=== PATIENT | male | born 1975 | race Two or more races ===

== ENCOUNTER 2023-07-18 15:45 | Inpatient (IN) | payer OTHER ==
[~2023-07-18] VITALS: Ht 165.1 cm; Wt 69.4 kg
[2023-07-18] MEDS: ONDANSETRON 4 MG/2 ML VIAL IV ONE (16:00)
[2023-07-18] MEDS: METOPROLOL TARTRATE 50 MG TABLET PO ONE (16:00)
[2023-07-18] MEDS: HYDROMORPHONE 1 MG/1 ML DISP.SYRIN IV ONE ×2 (16:00→18:28)
[2023-07-18] MEDS: NITROGLYCERIN OINT 1 GM PACKET TP ONE (16:00)
[2023-07-18] MEDS: METOPROLOL TARTRATE 5 MG/5 ML VIAL IVP ONE (16:00)
[2023-07-18 16:11] LABS: CALCIUM 7.5 mg/dL (8.5-10.1); CARBON DIOXIDE 23 mmol/L (21-32); CHLORIDE 94 mmol/L (98-107); CREATININE 7.2 mg/dL (0.6-1.3); GLUCOSE 61 mg/dL (74-106); SODIUM SERUM 135 mmol/L (136-145); UREA NITROGEN, BLOOD 16 mg/dL (7-18)
[2023-07-18 16:17] LABS: BASOPHILS # (AUTO) 0.1 K/UL (0.0-0.2); DIFFERENTIAL COMMENT 0; EOSINOPHILS # (AUTO) 0.1 K/uL (0.0-0.7); EOSINOPHILS % (AUTO) 3.2 % (0.0-7.0); HEMATOCRIT 28.8 % (36.7-47.1); HEMOGLOBIN 9.9 g/dL (12.5-16.3); LYMPHOCYTES # (AUTO) 0.5 K/uL (0.8-4.8); LYMPHOCYTES % (AUTO) 13.8 % (20.5-51.5); MEAN CORPUSCULAR HEMOGLOBIN 32.9 uug (23.8-33.4); MEAN CORPUSCULAR HGB CONC 34 g/dL (32.5-36.3); MEAN CORPUSCULAR VOLUME 95.7 fL (73.0-96.2); MONOCYTES # (AUTO) 0.3 K/uL (0.1-1.30); MONOCYTES % (AUTO) 8.6 % (0.0-11.0); NEUTROPHILS # (AUTO) 2.7 K/uL (1.8-8.9); NEUTROPHILS % (AUTO) 71.4 % (38.5-71.5); PLATELET COUNT (AUTO) 180 K/uL (152-348); WHITE BLOOD COUNT (AUTO) 3.8 K/uL (3.6-10.2)
[2023-07-18 16:24] LABS: NT-PRO BNP 9401 pg/mL (0-125)
[2023-07-18] MEDS ORDERED: NITROGLYCERIN OINT 1 GM PACKET TP ONE (16:35)
[2023-07-18] MEDS ORDERED: METOPROLOL TARTRATE 5 MG/5 ML VIAL IVP ONE (16:35)
[2023-07-18] MEDS ORDERED: METOPROLOL TARTRATE 50 MG TABLET ONE (16:35)
[2023-07-18] MEDS ORDERED: ONDANSETRON 4 MG/2 ML VIAL ONE (16:35)
[2023-07-18] MEDS ORDERED: HYDROMORPHONE 1 MG/1 ML DISP.SYRIN ONE ×2 (16:35→18:28)
[2023-07-18] MEDS ORDERED: DULO20CA PO (16:43)
[2023-07-18] MEDS ORDERED: GABA600T12 PO (16:43)
[2023-07-18] MEDS ORDERED: MINO2.5T GT (16:43)
[2023-07-18] MEDS ORDERED: CINA60TA PO (16:43)
[2023-07-18] MEDS ORDERED: CETI-90 PO (16:43)
[2023-07-18] MEDS ORDERED: HYDR-4077 PO (16:43)
[2023-07-18] MEDS ORDERED: FOLI1TAB94 PO (16:43)
[2023-07-18] MEDS ORDERED: CLON-418 PO (16:43)
[2023-07-18] MEDS ORDERED: OMEP40CA21 PO (16:43)
[2023-07-18] MEDS ORDERED: LABE100T5 PO (16:43)
[2023-07-18 21:41] VITALS: BP 111/53; TEMP 98.3; O2SAT 98
[2023-07-18 21:42] VITALS: BP 111/53; TEMP 98.3; O2SAT 98
[2023-07-18] MEDS ORDERED: NITROGLYCERIN 0.4 MG/TAB BOTTLE SL PRN (22:30)
[2023-07-18] MEDS ORDERED: MORPHINE SULFATE 2 MG/1 ML DISP.SYRIN IV PRN (22:30)
[2023-07-18] MEDS ORDERED: MAGNESIUM HYDROXIDE 30 ML LIQUID UDC PO PRN (22:30)
[2023-07-18] MEDS ORDERED: ONDANSETRON 4 MG/2 ML VIAL IV PRN (22:30)
[2023-07-18] MEDS ORDERED: REMEDY ESSENTIAL ZINC PASTE 113 GM TP PRN (22:30)
[2023-07-18] MEDS: HYDROMORPHONE 1 MG/1 ML DISP.SYRIN IV PRN (23:12)
[2023-07-19 00:07] VITALS: BP 102/55; TEMP 98.4; O2SAT 97
[2023-07-19 05:32] VITALS: BP 127/69; TEMP 98.2; O2SAT 96
[2023-07-19] MEDS: hydrALAZINE HCL 50 MG TABLET PO SCH (06:26)
[2023-07-19] MEDS: PANTOPRAZOLE SODIUM 40 MG TABLET.DR PO SCH (06:26)
[2023-07-19 07:00] LABS: BASOPHILS % (AUTO) 1.6 % (0.0-2.0); EOSINOPHILS # (AUTO) 0.2 K/uL (0.0-0.7); EOSINOPHILS % (AUTO) 7.2 % (0.0-7.0); HEMATOCRIT 27.9 % (36.7-47.1); HEMOGLOBIN 9.6 g/dL (12.5-16.3); LYMPHOCYTES # (AUTO) 0.4 K/uL (0.8-4.8); LYMPHOCYTES % (AUTO) 18.7 % (20.5-51.5); MEAN CORPUSCULAR HEMOGLOBIN 33.2 uug (23.8-33.4); MEAN CORPUSCULAR HGB CONC 34 g/dL (32.5-36.3); MEAN CORPUSCULAR VOLUME 96.7 fL (73.0-96.2); MONOCYTES # (AUTO) 0.3 K/uL (0.1-1.30); MONOCYTES % (AUTO) 12.9 % (0.0-11.0); NEUTROPHILS # (AUTO) 1.4 K/uL (1.8-8.9); NEUTROPHILS % (AUTO) 59.6 % (38.5-71.5); PLATELET COUNT (AUTO) 137 K/uL (152-348); RED BLOOD CELL COUNT(AUTO) 2.89 MIL/uL (4.06-5.63); RED CELL DISTRIBUTION WIDTH 16.2 % (12.1-16.2); WHITE BLOOD COUNT (AUTO) 2.3 K/uL (3.6-10.2)
[2023-07-19 07:08] LABS: CALCIUM 6.8 mg/dL (8.5-10.1); MAGNESIUM 2.2 mg/dL (1.8-2.4); PHOSPHOROUS 5.1 mg/dL (2.5-4.9); POTASSIUM 3.9 mmol/L (3.5-5.1)
[2023-07-19 07:14] LABS: DIFFERENTIAL COMMENT 1
[2023-07-19 07:19] LABS: CREATININE 8.9 mg/dL (0.6-1.3)
[2023-07-19 08:06] VITALS: BP 109/61; TEMP 98.6
[2023-07-19] MEDS: DULOXETINE 20 MG CAPSULE.DR PO SCH (08:56)
[2023-07-19] MEDS: FOLIC ACID 1 MG TABLET PO SCH (08:56)
[2023-07-19] MEDS: MINOXIDIL 2.5 MG TABLET GT SCH (08:56)
[2023-07-19] MEDS: ASPIRIN 325 MG TABLET PO SCH (08:56)
[2023-07-19] MEDS: CINACALCET HCL 30 MG TABLET PO SCH (08:56)
[2023-07-19] MEDS: LABETALOL HCL 100 MG TABLET PO SCH (08:57)
[2023-07-19] MEDS ORDERED: CETIRIZINE HCL 10 MG TABLET PO SCH (09:00)
[2023-07-19] MEDS ORDERED: CINACALCET HCL 60 MG PO SCH (09:00)
[2023-07-19] MEDS ORDERED: Medication Not On Formulary EA (Omeprazole 40 MG) PO SCH (09:00)
[2023-07-19] MEDS ORDERED: CLONIDINE HCL 0.1 MG PO SCH (09:00)
[2023-07-19 12:02] VITALS: BP 107/66; TEMP 97.8; O2SAT 99
[2023-07-19] MEDS ORDERED: MAGNESIUM HYDROXIDE 30 ML LIQUID UDC PO PRN (14:15)
[2023-07-19 16:03] VITALS: BP 100/63; TEMP 98.6; O2SAT 95
[2023-07-19] MEDS: MAGNESIUM HYDROXIDE 30 ML LIQUID UDC PO PRN (16:53)
[2023-07-19 20:00] VITALS: BP 119/67; TEMP 97.2; O2SAT 96
[2023-07-19] MEDS ORDERED: POLYVINYL ALCOHOL OPHT DROPS 15 ML BOTTLE EACHEYE SCH (21:00)
[2023-07-19] MEDS ORDERED: prednisoLONE ACET 1% OPHT DROP 5 ML BOTTLE RIGHTEYE SCH (21:00)
[2023-07-20 00:21] VITALS: BP 112/64; TEMP 97.6; O2SAT 96
[2023-07-20 04:00] VITALS: BP 109/60; TEMP 98; O2SAT 98
[2023-07-20 08:00] VITALS: BP 99/58; TEMP 98.6; O2SAT 95
[2023-07-20] MEDS ORDERED: CLONIDINE HCL 0.1 MG TABLET PO PRN (11:00)
[2023-07-20] MEDS: GABAPENTIN 300 MG CAPSULE PO SCH (11:29)
[2023-07-20 11:45] VITALS: BP 129/76; TEMP 98.4; O2SAT 97
[2023-07-20] MEDS ORDERED: HYDR-894 PO (13:26)
[2023-07-20] MEDS ORDERED: hydrALAZINE HCL 50 MG TABLET PO SCH (14:00)
[2023-07-20] MEDS: hydrALAZINE HCL 25 MG TABLET PO SCH (14:00)
[2023-07-20 16:19] VITALS: BP 98/53; TEMP 98.2; O2SAT 97
[2023-07-20] MEDS: ACETAMINOPHEN 325 MG TABLET PO PRN (19:36)
[2023-07-20 20:00] VITALS: BP 127/66; TEMP 98.2; O2SAT 99
[2023-07-20] MEDS: CETIRIZINE HCL 10 MG TABLET PO SCH (20:50)
[2023-07-21 00:10] VITALS: BP 126/70; TEMP 98.8; O2SAT 97
[2023-07-21 04:15] VITALS: BP 140/78; TEMP 98.3; O2SAT 97
[2023-07-21 07:46] VITALS: BP 131/67; TEMP 98.3; O2SAT 97
[2023-07-21] MEDS ORDERED: ASPI-495 PO (10:14)
[2023-07-21 10:54] VITALS: BP 106/64; TEMP 98.4; O2SAT 98
[2023-07-22 08:09] LABS: HEPATITIS B SURFACE AB, QUAL Reactive (.); HEPATITIS B SURFACE AG Negative (Negative)
== END 2023-07-21 10:55 | disposition home or self-care (01) | DRG 425 ==
LOC: ER 15:47 → TELE3 20:51 → TELE-TD3 20:51 → UNDOADMIN 20:51 → MEDSURG3 07-21 08:47
PROVIDERS: ADMIT Internal Medicine; ATTEND Nurse Practitioner Acute Care
PROC: 5A1D70Z Performance of Urinary Filtration, Intermittent, Less than 6 Hours Per Day (ICD-10-PCS; principal; 2023-07-20)
DX: E87.70 Fluid overload, unspecified (principal); Z76.82 Awaiting organ transplant status; I12.0 Hypertensive chronic kidney disease with stage 5 chronic kidney disease or end stage renal disease; N18.6 End stage renal disease; D63.1 Anemia in chronic kidney disease; N25.81 Secondary hyperparathyroidism of renal origin; E87.1 Hypo-osmolality and hyponatremia; G62.9 Polyneuropathy, unspecified; K21.9 Gastro-esophageal reflux disease without esophagitis; Z79.899 Other long term (current) drug therapy; Z99.2 Dependence on renal dialysis
CPT/HCPCS: 36415; 71045; 83735; 84100; 84484; 85025; 85730; 86706; 87340; 90937; 93005; A4663; G0378; J1170; J2405; J2650; J3490; J7040